=== PATIENT | female | born 1965 | race Two or more races ===

== ENCOUNTER 2016-10-30 18:57 | Emergency (ER) | payer OTHER ==
[~2016-10-30] VITALS: Ht 160 cm; Wt 66.0 kg
[2016-10-30] MEDS ORDERED: LOSA50TA6 PO (19:12)
[2016-10-30] MEDS ORDERED: ASPIRIN 81 MG TABLET CHEW ONE (19:21)
[2016-10-30] MEDS ORDERED: PLEASE ENTER ALLERGIES MC SCH ×2 (19:30)
[2016-10-30] MEDS ORDERED: ASPIRIN 81 MG TABLET CHEW PO ONE (19:30)
[2016-10-30] MEDS ORDERED: SODIUM CHLORIDE FLUSH 10ML SYR IVF ONE (19:30)
[2016-10-30 19:36] LABS: BLOOD UREA NITROGEN 14 mg/dL (7-18)
[2016-10-30 19:45] LABS: IS PT STATUS REG ER OR PRE ER? YES
[2016-10-30] MEDS ORDERED: IBUPROFEN 200 MG TABLET PO ONE (20:00)
[2016-10-30] MEDS ORDERED: IBUPROFEN 200 MG TABLET ONE (20:41)
[2016-10-30 21:04] VITALS: BP 158/95
== END 2016-10-30 21:08 | disposition home or self-care (01) ==
LOC: ED 21:02
DX: I10 Essential (primary) hypertension (principal); R07.89 Other chest pain; E78.5 Hyperlipidemia, unspecified
CPT/HCPCS: 36415; 71010; 80048; 82040; 84484; 85025; 93005

== ENCOUNTER → 2017-02-13 | Outpatient (CLI) | payer OTHER ==
[~2017-02-13] MED LIST: LOSA50TA6 PO
== END | disposition home or self-care (01) ==
LOC: CFH 07:03
PROVIDERS: ATTEND Internal Medicine Cardiovascular Disease
DX: R07.9 Chest pain, unspecified (principal); R00.2 Palpitations
CPT/HCPCS: 78452; 93017; 93306; A9502